=== PATIENT | female | born 1935 | race Caucasian/White ===

== ENCOUNTER 2017-06-06 22:03 | Inpatient (IN) | payer MEDICARE, OTHER ==
[~2017-06-06] VITALS: Ht 162.6 cm; Wt 67.3 kg
[~2017-06-06 22:03] MED LIST: ATOR10TA9 PO; DIVA250T PO; DONE10TA30 PO; DULO30CA2 PO; ESOM40CA PO; GABA800T2 PO; LEVO100T PO; MELA1TAB7 PO; METF-366 PO; METF10002 PO; RISP2TAB35 PO
[2017-06-06] MEDS ORDERED: SODIUM CHLORIDE 0.9%, 500ML IVBOLUS ONE (22:30)
[2017-06-06] MEDS ORDERED: PLEASE ENTER HEIGHT AND WEIGHT MC SCH (22:30)
[2017-06-06] MEDS ORDERED: PLEASE ENTER ALLERGIES MC SCH ×2 (22:30)
[2017-06-06] MEDS ORDERED: ACET325T14 PO (22:47)
[2017-06-06] MEDS ORDERED: LORA1TAB PO (22:47)
[2017-06-06] MEDS ORDERED: TRAZ100T15 PO (22:47)
[2017-06-06] MEDS ORDERED: CHOL2000 PO (22:47)
[2017-06-06] MEDS ORDERED: ASPIRIN 325 MG TABLET ONE (22:51)
[2017-06-06] MEDS ORDERED: OMNIPAQUE 350 MG/ML, 100ML BOTTLE ONE (22:55)
[2017-06-06] MEDS ORDERED: ASPIRIN 325 MG TABLET PO ONE (23:30)
[2017-06-07] MEDS ORDERED: ONDANSETRON 2MG/ML, 2ML IVPush PRN (00:30)
[2017-06-07] MEDS ORDERED: BISACODYL 10 MG SUPP PR PRN (00:30)
[2017-06-07] MEDS ORDERED: morphine SULFATE 10 MG/ML, 1ML IVPush PRN (00:30)
[2017-06-07] MEDS ORDERED: ENALAPRILAT 1.25 MG/ML, 2ML IVPush PRN (00:30)
[2017-06-07 00:46] LABS: IS PT STATUS REG ER OR PRE ER? NO
[2017-06-07 00:51] VITALS: BP 150/81
[2017-06-07] MEDS: SODIUM CHLORIDE 0.9% 1,000 ML IV SCH (01:19)
[2017-06-07] MEDS: HEPARIN 5,000 UNITS/ML, 1ML SQ SCH ×3 (01:20→16:30)
[2017-06-07 02:00] VITALS: BP 150/81
[2017-06-07 05:11] VITALS: BP 164/80
[2017-06-07 05:49] LABS: IS PT STATUS REG ER OR PRE ER? NO
[2017-06-07 07:29] VITALS: BP 151/80
[2017-06-07] MEDS: ASPIRIN 325 MG TABLET PO SCH (09:59)
[2017-06-07] MEDS ORDERED: GADOBUTROL 10 MMOL/10 ML VIAL ONE (13:23)
[2017-06-07 15:34] VITALS: BP 132/83
[2017-06-07 16:42] LABS: IS PT STATUS REG ER OR PRE ER? NO
[2017-06-07 18:23] LABS: PATH.CAST-FLAG NOT PRESENT; SPERM-FLAG NOT PRESENT; SRC-FLAG NOT PRESENT; XTAL-FLAG NOT PRESENT; YLC-FLAG NOT PRESENT
[2017-06-07 20:00] VITALS: BP 160/80
[2017-06-07 21:16] LABS: IS PT STATUS REG ER OR PRE ER? NO
[2017-06-07] MEDS: INSULIN ASPART 100 UNITS/ML, PEN SQ-INSULIN SCH (21:51)
[2017-06-08 02:00] VITALS: BP 153/73
[2017-06-08] MEDS: SODIUM CHLORIDE 0.9% 1,000 ML IV SCH (04:26)
[2017-06-08] MEDS: HEPARIN 5,000 UNITS/ML, 1ML SQ SCH (04:26)
[2017-06-08 06:16] LABS: ASPARTATE AMINO TRANSFERASE 13 U/L (15-37); BLOOD UREA NITROGEN 7 mg/dL (7-18)
[2017-06-08 06:23] LABS: IS PT STATUS REG ER OR PRE ER? NO
[2017-06-08 06:47] VITALS: BP 145/81
[2017-06-08] MEDS: INSULIN ASPART 100 UNITS/ML, PEN SQ-INSULIN SCH ×2 (07:00→11:36)
[2017-06-08] MEDS: ASPIRIN 325 MG TABLET PO SCH (08:22)
[2017-06-08] MEDS ORDERED: MAGNESIUM SULFATE PMX 2GM/50ML 50 ML IV ONE (10:00)
[2017-06-08] MEDS ORDERED: MAGNESIUM OXIDE 400 MG TABLET PO SCH (10:00)
[2017-06-08] MEDS ORDERED: ENOXAPARIN 40 MG/0.4 ML SQ SCH (12:00)
[2017-06-08 12:17] VITALS: BP 152/74
[2017-06-08] MEDS ORDERED: CEFTRIAXONE PMX 1GM/50ML 50 ML IV SCH (13:00)
[2017-06-08] MEDS ORDERED: TRAZ50TA18 PO (15:09)
[2017-06-08] MEDS ORDERED: LORA0.5T PO (15:09)
[2017-06-08] MEDS ORDERED: DIPH25CA61 PO (15:09)
[2017-06-08] MEDS ORDERED: MAGN400O4 PO (15:09)
[2017-06-08] MEDS ORDERED: ERGO500017 PO (15:09)
[2017-06-08] MEDS ORDERED: LOPE2CAP PO (15:09)
[2017-06-08] MEDS ORDERED: ASPI325T4 PO (16:15)
[2017-06-08] MEDS ORDERED: CEFD300C37 PO (16:15)
[2017-06-08] MEDS ORDERED: LACT1CAP24 PO (16:15)
[2017-06-08] MEDS ORDERED: ATOR10TA9 PO (16:15)
[2017-06-08] MEDS ORDERED: ATORVASTATIN 10 MG TABLET PO SCH (21:00)
[2017-06-09] MEDS ORDERED: LEVOTHYROXINE 100 MCG TABLET PO SCH (06:00)
== END 2017-06-08 16:02 | disposition home or self-care (01) | DRG 65 ==
LOC: MERGE 22:03 → EDBD 22:03 → ED 23:30 → EDIP 23:34 → 4EST 06-07 00:17
PROVIDERS: ADMIT Internal Medicine; ATTEND Internal Medicine
PROC: 0T9B70Z Drainage of Bladder with Drainage Device, Via Natural or Artificial Opening (ICD-10-PCS; principal; 2017-06-07)
DX: I63.9 Cerebral infarction, unspecified (principal); G45.9 Transient cerebral ischemic attack, unspecified; J96.10 Chronic respiratory failure, unspecified whether with hypoxia or hypercapnia; N39.0 Urinary tract infection, site not specified; G46.0 Middle cerebral artery syndrome; F03.90 Unspecified dementia, unspecified severity, without behavioral disturbance, psychotic disturbance, mood disturbance, and anxiety; E03.9 Hypothyroidism, unspecified; J44.9 Chronic obstructive pulmonary disease, unspecified; F31.9 Bipolar disorder, unspecified; D63.8 Anemia in other chronic diseases classified elsewhere; R47.81 Slurred speech; E78.5 Hyperlipidemia, unspecified; E83.39 Other disorders of phosphorus metabolism; E83.42 Hypomagnesemia; R74.8 Abnormal levels of other serum enzymes; E11.9 Type 2 diabetes mellitus without complications; K21.9 Gastro-esophageal reflux disease without esophagitis; Z79.82 Long term (current) use of aspirin; Z99.81 Dependence on supplemental oxygen; Z79.899 Other long term (current) drug therapy
CPT/HCPCS: 0042T; 36415; 70450; 70496; 70498; 70544; 70549; 70551; 80047; 80053; 80061; 81001; 82962; 83036; 83735; 84100; 84439; 84443; 84484; 85025; 85610; 85730; 87077; 87086; 87186; 93005; 93306; A9585; J0696; J1644; J1650; J1815; Q9967; J3475; J7030; J7040

== ENCOUNTER 2017-06-25 11:45 | Inpatient (IN) | payer MEDICARE, OTHER ==
[~2017-06-25] VITALS: Ht 162.6 cm; Wt 68.6 kg
[~2017-06-25 11:45] MED LIST changes: +ACET325T14 PO; +ASPI325T4 PO; +CEFD300C37 PO; +CHOL2000 PO; +DIPH25CA61 PO; +ERGO500017 PO; +LACT1CAP24 PO; +LOPE2CAP PO; +LORA0.5T PO; +LORA1TAB PO; +MAGN400O4 PO; +TRAZ100T15 PO; +TRAZ50TA18 PO
[2017-06-25] MEDS ORDERED: SODIUM CHLORIDE 0.9% 1,000 ML IV ONE (11:49)
[2017-06-25] MEDS ORDERED: SODIUM CHLORIDE FLUSH 10ML SYR IVF ONE ×2 (12:00→18:30)
[2017-06-25 12:08] LABS: HEMATOCRIT 33.4 % (34.6-47.8); WHITE BLOOD COUNT 10.6 x10^3/uL (3.4-10)
[2017-06-25 12:21] LABS: ASPARTATE AMINO TRANSFERASE 9 U/L (15-37); BLOOD UREA NITROGEN 22 mg/dL (7-18)
[2017-06-25] MEDS ORDERED: ACETAMINOPHEN 650 MG SUPP ONE (18:25)
[2017-06-25] MEDS ORDERED: SODIUM CHLORIDE 0.9% 1,000ML IVBOLUS ONE (18:30)
[2017-06-25] MEDS ORDERED: PHARMACOKINETIC MONITORING MC PRN (18:30)
[2017-06-25] MEDS ORDERED: PHARMACOKINETIC CONSULTATION MC ONE (18:30)
[2017-06-25] MEDS ORDERED: PIPERACILLIN/TAZO/PMX 3.375GM 50 ML IVPB ONE (18:30)
[2017-06-25] MEDS ORDERED: VANCOMYCIN PER PHARMACY IV ONE (18:30)
[2017-06-25] MEDS ORDERED: VANCOMYCIN 1,200 MG in SODIUM CHLORIDE 0.9% 250 ML IV ONE (18:30)
[2017-06-25] MEDS ORDERED: ACETAMINOPHEN 650 MG SUPP PR ONE (18:30)
[2017-06-25] MEDS ORDERED: PIPERACILLIN/TAZO/PMX 3.375GM 50 ML ONE (19:02)
[2017-06-25] MEDS ORDERED: ACETAMINOPHEN 325 MG TABLET PO PRN (19:30)
[2017-06-25] MEDS ORDERED: GUAIFENESIN/DM 200-20MG, 10ML UDC PO PRN (19:30)
[2017-06-25] MEDS ORDERED: ONDANSETRON 2MG/ML, 2ML IVPush PRN (19:30)
[2017-06-25] MEDS ORDERED: LORazepam 0.5MG TABLET PO PRN (22:30)
[2017-06-25] MEDS ORDERED: LOPERAMIDE 2 MG CAPSULE PO PRN (22:30)
[2017-06-25] MEDS: SODIUM CHLORIDE 0.9% 1,000 ML IV SCH (23:03)
[2017-06-25] MEDS: CEFTRIAXONE PMX 1GM/50ML 50 ML IV SCH (23:15)
[2017-06-25] MEDS: INSULIN ASPART 100 UNITS/ML, PEN SQ-INSULIN SCH (23:16)
[2017-06-26] MEDS: AZITHROMYCIN 500 MG in SODIUM CHLORIDE 0.9% 250 ML IV SCH (00:25)
[2017-06-26 01:32] VITALS: BP 116/73
[2017-06-26 04:44] LABS: WHITE BLOOD COUNT 14.4 x10^3/uL (3.4-10)
[2017-06-26 04:52] LABS: BLOOD UREA NITROGEN 15 mg/dL (7-18)
[2017-06-26 04:55] LABS: ASPARTATE AMINO TRANSFERASE 10 U/L (15-37)
[2017-06-26] MEDS: LEVOTHYROXINE 100 MCG TABLET PO SCH (05:40)
[2017-06-26] MEDS: SODIUM CHLORIDE 0.9% 1,000 ML IV SCH ×3 (05:55→22:57)
[2017-06-26] MEDS: INSULIN ASPART 100 UNITS/ML, PEN SQ-INSULIN SCH ×4 (07:00→22:52)
[2017-06-26 07:59] VITALS: BP 121/73
[2017-06-26] MEDS: GABAPENTIN 400 MG CAPSULE PO SCH ×2 (09:00→22:51)
[2017-06-26] MEDS: ASPIRIN 325 MG TABLET PO SCH (09:00)
[2017-06-26] MEDS ORDERED: MAGNESIUM SULFATE PMX 2GM/50ML 50 ML IV ONE (09:00)
[2017-06-26] MEDS: DIVALPROEX 125 MG TABLET.DR PO SCH ×3 (09:00→22:51)
[2017-06-26] MEDS: DULOXETINE 30 MG CAPSULE.DR PO SCH (09:00)
[2017-06-26] MEDS: DIPHENHYDRAMINE 25 MG CAPSULE PO SCH ×2 (09:00→22:52)
[2017-06-26] MEDS: ENOXAPARIN 40 MG/0.4 ML SQ SCH (10:53)
[2017-06-26 14:36] VITALS: BP 132/78
[2017-06-26 20:29] VITALS: BP 144/80
[2017-06-26] MEDS: RISPERIDONE 1 MG TABLET PO SCH (22:51)
[2017-06-26] MEDS: TRAZODONE 50MG TABLET PO SCH (22:51)
[2017-06-26] MEDS: CEFTRIAXONE PMX 1GM/50ML 50 ML IV SCH (23:11)
[2017-06-27] MEDS: AZITHROMYCIN 500 MG in SODIUM CHLORIDE 0.9% 250 ML IV SCH ×2 (00:01→23:53)
[2017-06-27 02:09] VITALS: BP 117/71
[2017-06-27 05:07] LABS: BLOOD UREA NITROGEN 13 mg/dL (7-18)
[2017-06-27 05:11] LABS: HEMATOCRIT 30.3 % (34.6-47.8); HEMOGLOBIN 10.1 g/dL (11.7-16.4); WHITE BLOOD COUNT 18.1 x10^3/uL (3.4-10)
[2017-06-27] MEDS: LEVOTHYROXINE 100 MCG TABLET PO SCH (05:22)
[2017-06-27] MEDS: SODIUM CHLORIDE 0.9% 1,000 ML IV SCH ×2 (05:25→11:42)
[2017-06-27 06:56] VITALS: BP 128/73
[2017-06-27] MEDS: INSULIN ASPART 100 UNITS/ML, PEN SQ-INSULIN SCH ×4 (08:12→22:16)
[2017-06-27] MEDS: DIPHENHYDRAMINE 25 MG CAPSULE PO SCH ×2 (08:26→20:49)
[2017-06-27] MEDS: ASPIRIN 325 MG TABLET PO SCH (08:26)
[2017-06-27] MEDS: DIVALPROEX 125 MG TABLET.DR PO SCH ×3 (08:27→20:49)
[2017-06-27] MEDS: DULOXETINE 30 MG CAPSULE.DR PO SCH (08:27)
[2017-06-27] MEDS: ENOXAPARIN 40 MG/0.4 ML SQ SCH (08:27)
[2017-06-27] MEDS: metroNIDAZOLE 500 MG TABLET PO SCH ×3 (08:27→20:50)
[2017-06-27] MEDS: GABAPENTIN 400 MG CAPSULE PO SCH ×2 (08:27→20:48)
[2017-06-27] MEDS: LACTOBACILLUS CHEW TABLET PO SCH ×3 (12:39→20:49)
[2017-06-27 14:23] VITALS: BP 130/75
[2017-06-27 18:44] VITALS: BP 152/84
[2017-06-27] MEDS: TRAZODONE 50MG TABLET PO SCH (20:47)
[2017-06-27] MEDS: RISPERIDONE 1 MG TABLET PO SCH (20:50)
[2017-06-27] MEDS: CEFTRIAXONE PMX 1GM/50ML 50 ML IV SCH (23:04)
[2017-06-28] MEDS: SODIUM CHLORIDE 0.9% 1,000 ML IV SCH ×2 (01:11→07:40)
[2017-06-28 03:04] VITALS: BP 134/72
[2017-06-28] MEDS: LACTOBACILLUS CHEW TABLET PO SCH ×4 (05:40→22:17)
[2017-06-28] MEDS: LEVOTHYROXINE 100 MCG TABLET PO SCH (05:41)
[2017-06-28 06:26] LABS: HEMATOCRIT 31.3 % (34.6-47.8); HEMOGLOBIN 10.5 g/dL (11.7-16.4); WHITE BLOOD COUNT 18.3 x10^3/uL (3.4-10)
[2017-06-28 06:37] LABS: BLOOD UREA NITROGEN 10 mg/dL (7-18)
[2017-06-28 06:59] LABS: DIFF TOTAL CELLS COUNTED 100 CELL DIFF
[2017-06-28 07:03] LABS: VERIFY COUNTS? YES
[2017-06-28 08:56] VITALS: BP 128/76
[2017-06-28] MEDS: INSULIN ASPART 100 UNITS/ML, PEN SQ-INSULIN SCH ×4 (09:36→22:15)
[2017-06-28] MEDS: DIPHENHYDRAMINE 25 MG CAPSULE PO SCH ×2 (09:38→22:16)
[2017-06-28] MEDS: DIVALPROEX 125 MG TABLET.DR PO SCH ×3 (09:38→22:30)
[2017-06-28] MEDS: ASPIRIN 325 MG TABLET PO SCH (09:38)
[2017-06-28] MEDS: metroNIDAZOLE 500 MG TABLET PO SCH ×3 (09:39→22:16)
[2017-06-28] MEDS: ENOXAPARIN 40 MG/0.4 ML SQ SCH (09:39)
[2017-06-28] MEDS: GABAPENTIN 400 MG CAPSULE PO SCH ×2 (09:39→22:17)
[2017-06-28] MEDS: DULOXETINE 30 MG CAPSULE.DR PO SCH (09:40)
[2017-06-28] MEDS ORDERED: METOCLOPRAMIDE 5 MG/ML, 2ML IVPush ONE (11:00)
[2017-06-28] MEDS ORDERED: SODIUM CHLORIDE 0.9% 1,000 ML IV SCH ×3 (11:08→19:20)
[2017-06-28] MEDS ORDERED: OMNIPAQUE 350 MG/ML, 100ML BOTTLE ONE (11:32)
[2017-06-28] MEDS: PIPERACILLIN/TAZO/PMX 4.5GM 100 ML IV SCH ×2 (11:35→17:13)
[2017-06-28] MEDS ORDERED: PHARMACOKINETIC MONITORING MC PRN (12:00)
[2017-06-28] MEDS ORDERED: VANCOMYCIN PER PHARMACY MC PRN (12:00)
[2017-06-28] MEDS ORDERED: PHARMACOKINETIC CONSULTATION MC ONE (12:00)
[2017-06-28] MEDS: VANCOMYCIN 1,200 MG in SODIUM CHLORIDE 0.9% 250 ML IV SCH (12:27)
[2017-06-28 14:38] VITALS: BP 133/73
[2017-06-28] MEDS ORDERED: METRONIDAZOLE PMX 500MG/100ML 100 ML IV SCH (17:30)
[2017-06-28 20:21] VITALS: BP 139/79
[2017-06-28] MEDS ORDERED: SODIUM CHLORIDE 0.9%, 500ML IVBOLUS ONE (22:00)
[2017-06-28] MEDS: TRAZODONE 50MG TABLET PO SCH (22:16)
[2017-06-28] MEDS: RISPERIDONE 1 MG TABLET PO SCH (22:17)
[2017-06-29] MEDS: PIPERACILLIN/TAZO/PMX 4.5GM 100 ML IV SCH ×4 (00:10→18:41)
[2017-06-29 02:15] VITALS: BP 119/59
[2017-06-29 05:16] LABS: HEMATOCRIT 31.7 % (34.6-47.8); HEMOGLOBIN 10.6 g/dL (11.7-16.4); WHITE BLOOD COUNT 20.6 x10^3/uL (3.4-10)
[2017-06-29] MEDS: LACTOBACILLUS CHEW TABLET PO SCH ×4 (05:41→21:53)
[2017-06-29] MEDS: LEVOTHYROXINE 100 MCG TABLET PO SCH (05:41)
[2017-06-29 05:56] LABS: BLOOD UREA NITROGEN 13 mg/dL (7-18)
[2017-06-29] MEDS: INSULIN ASPART 100 UNITS/ML, PEN SQ-INSULIN SCH ×4 (07:00→22:19)
[2017-06-29 08:05] VITALS: BP 103/57
[2017-06-29] MEDS: metroNIDAZOLE 500 MG TABLET PO SCH (11:19)
[2017-06-29] MEDS: DULOXETINE 30 MG CAPSULE.DR PO SCH (11:19)
[2017-06-29] MEDS: DIVALPROEX 125 MG TABLET.DR PO SCH ×3 (11:19→21:52)
[2017-06-29] MEDS: GABAPENTIN 400 MG CAPSULE PO SCH ×2 (11:19→21:52)
[2017-06-29] MEDS: ASPIRIN 325 MG TABLET PO SCH (11:19)
[2017-06-29] MEDS: ENOXAPARIN 40 MG/0.4 ML SQ SCH (11:20)
[2017-06-29] MEDS ORDERED: POTASSIUM PHOSPHATE 44 MEQ in SODIUM CHLORIDE 0.9% 500 ML IV ONE (12:00)
[2017-06-29] MEDS: DIPHENHYDRAMINE 25 MG CAPSULE PO SCH ×2 (12:03→21:53)
[2017-06-29] MEDS ORDERED: SODIUM CHLORIDE 0.9% 1,000 ML IV SCH (12:13)
[2017-06-29] MEDS: VANCOMYCIN 1,200 MG in SODIUM CHLORIDE 0.9% 250 ML IV SCH (13:47)
[2017-06-29 15:15] VITALS: BP 115/67
[2017-06-29] MEDS: VANCOMYCIN 50 MG/ML ORAL SUSP PO SCH ×2 (16:12→21:53)
[2017-06-29] MEDS: POTASSIUM CHLORIDE 20 MEQ TAB.ER.PRT PO SCH (17:52)
[2017-06-29 20:00] VITALS: BP 114/65
[2017-06-29] MEDS: TRAZODONE 50MG TABLET PO SCH (21:52)
[2017-06-29] MEDS: RISPERIDONE 1 MG TABLET PO SCH (21:52)
[2017-06-30] MEDS: PIPERACILLIN/TAZO/PMX 4.5GM 100 ML IV SCH ×4 (00:22→18:01)
[2017-06-30 01:36] VITALS: BP 117/63
[2017-06-30] MEDS: VANCOMYCIN 50 MG/ML ORAL SUSP PO SCH ×4 (02:08→19:52)
[2017-06-30 04:53] LABS: HEMATOCRIT 30.9 % (34.6-47.8); HEMOGLOBIN 10.1 g/dL (11.7-16.4); WHITE BLOOD COUNT 14.6 x10^3/uL (3.4-10)
[2017-06-30 05:08] LABS: BLOOD UREA NITROGEN 16 mg/dL (7-18)
[2017-06-30] MEDS: LEVOTHYROXINE 100 MCG TABLET PO SCH (05:33)
[2017-06-30] MEDS: LACTOBACILLUS CHEW TABLET PO SCH ×4 (06:20→19:57)
[2017-06-30 07:32] VITALS: BP 112/70
[2017-06-30] MEDS: INSULIN ASPART 100 UNITS/ML, PEN SQ-INSULIN SCH ×4 (07:33→20:23)
[2017-06-30] MEDS: DIVALPROEX 125 MG TABLET.DR PO SCH ×3 (08:18→19:56)
[2017-06-30] MEDS: POTASSIUM CHLORIDE 20 MEQ TAB.ER.PRT PO SCH (08:19)
[2017-06-30] MEDS: GABAPENTIN 400 MG CAPSULE PO SCH ×2 (08:19→19:57)
[2017-06-30] MEDS: ASPIRIN 325 MG TABLET PO SCH (08:19)
[2017-06-30] MEDS: ENOXAPARIN 40 MG/0.4 ML SQ SCH (08:19)
[2017-06-30] MEDS: DULOXETINE 30 MG CAPSULE.DR PO SCH (08:20)
[2017-06-30] MEDS: DIPHENHYDRAMINE 25 MG CAPSULE PO SCH ×2 (11:20→19:56)
[2017-06-30] MEDS: VANCOMYCIN 1,200 MG in SODIUM CHLORIDE 0.9% 250 ML IV SCH (13:24)
[2017-06-30 14:52] VITALS: BP 111/61
[2017-06-30] MEDS ORDERED: ACETAMINOPHEN 325 MG TABLET PO PRN (15:30)
[2017-06-30] MEDS ORDERED: PHARMACOKINETIC MONITORING MC PRN (15:30)
[2017-06-30] MEDS: RISPERIDONE 1 MG TABLET PO SCH (19:56)
[2017-06-30] MEDS: TRAZODONE 50MG TABLET PO SCH (19:57)
[2017-06-30 20:26] VITALS: BP 147/79
[2017-07-01] MEDS: PIPERACILLIN/TAZO/PMX 4.5GM 100 ML IV SCH ×4 (00:04→18:13)
[2017-07-01] MEDS: VANCOMYCIN 50 MG/ML ORAL SUSP PO SCH ×4 (01:56→20:06)
[2017-07-01 03:47] VITALS: BP 115/73
[2017-07-01] MEDS ORDERED: SODIUM CHLORIDE INHALATION 7%, 4 ML NPPB ONE (04:00)
[2017-07-01 04:54] LABS: HEMATOCRIT 31.8 % (34.6-47.8); HEMOGLOBIN 10.4 g/dL (11.7-16.4); WHITE BLOOD COUNT 9.1 x10^3/uL (3.4-10)
[2017-07-01 05:11] LABS: BLOOD UREA NITROGEN 13 mg/dL (7-18)
[2017-07-01] MEDS: LEVOTHYROXINE 100 MCG TABLET PO SCH (05:48)
[2017-07-01] MEDS: LACTOBACILLUS CHEW TABLET PO SCH ×4 (05:48→20:52)
[2017-07-01 06:50] VITALS: BP 113/61
[2017-07-01] MEDS: INSULIN ASPART 100 UNITS/ML, PEN SQ-INSULIN SCH ×4 (08:33→20:51)
[2017-07-01] MEDS: ENOXAPARIN 40 MG/0.4 ML SQ SCH (08:34)
[2017-07-01] MEDS: DIPHENHYDRAMINE 25 MG CAPSULE PO SCH (08:34)
[2017-07-01] MEDS: DULOXETINE 30 MG CAPSULE.DR PO SCH (08:34)
[2017-07-01] MEDS: DIVALPROEX 125 MG TABLET.DR PO SCH ×3 (08:34→20:52)
[2017-07-01] MEDS: GABAPENTIN 400 MG CAPSULE PO SCH (08:34)
[2017-07-01] MEDS: ASPIRIN 325 MG TABLET PO SCH (08:34)
[2017-07-01 08:46] VITALS: BP 123/71
[2017-07-01] MEDS ORDERED: GABAPENTIN 300 MG CAPSULE PO PRN (12:30)
[2017-07-01 13:55] VITALS: BP 111/67
[2017-07-01 20:21] VITALS: BP 142/81
[2017-07-01] MEDS: TRAZODONE 50MG TABLET PO SCH (20:52)
[2017-07-01] MEDS: RISPERIDONE 1 MG TABLET PO SCH (20:52)
[2017-07-02 01:11] VITALS: BP 118/68
[2017-07-02] MEDS: PIPERACILLIN/TAZO/PMX 4.5GM 100 ML IV SCH ×4 (01:12→18:31)
[2017-07-02] MEDS: VANCOMYCIN 50 MG/ML ORAL SUSP PO SCH ×4 (01:46→20:43)
[2017-07-02 05:18] LABS: HEMATOCRIT 33.1 % (34.6-47.8); HEMOGLOBIN 10.7 g/dL (11.7-16.4); WHITE BLOOD COUNT 6.7 x10^3/uL (3.4-10)
[2017-07-02 05:26] LABS: BLOOD UREA NITROGEN 10 mg/dL (7-18)
[2017-07-02] MEDS: LACTOBACILLUS CHEW TABLET PO SCH ×4 (06:12→20:44)
[2017-07-02] MEDS: LEVOTHYROXINE 100 MCG TABLET PO SCH (06:12)
[2017-07-02] MEDS: INSULIN ASPART 100 UNITS/ML, PEN SQ-INSULIN SCH ×4 (07:00→20:44)
[2017-07-02] MEDS: ENOXAPARIN 40 MG/0.4 ML SQ SCH (08:14)
[2017-07-02] MEDS: DULOXETINE 30 MG CAPSULE.DR PO SCH (08:14)
[2017-07-02] MEDS: ASPIRIN 325 MG TABLET PO SCH (08:15)
[2017-07-02] MEDS: DIVALPROEX 125 MG TABLET.DR PO SCH ×3 (08:20→20:44)
[2017-07-02 09:20] VITALS: BP 153/81
[2017-07-02 14:30] VITALS: BP 141/89
[2017-07-02 19:59] VITALS: BP 154/88
[2017-07-02] MEDS: TRAZODONE 50MG TABLET PO SCH (20:43)
[2017-07-02] MEDS: RISPERIDONE 1 MG TABLET PO SCH (20:43)
[2017-07-03 00:08] VITALS: BP 145/80
[2017-07-03] MEDS: PIPERACILLIN/TAZO/PMX 4.5GM 100 ML IV SCH ×4 (00:08→18:33)
[2017-07-03] MEDS: VANCOMYCIN 50 MG/ML ORAL SUSP PO SCH ×4 (02:41→22:40)
[2017-07-03 05:32] LABS: HEMATOCRIT 34.5 % (34.6-47.8); HEMOGLOBIN 11.3 g/dL (11.7-16.4); WHITE BLOOD COUNT 6.3 x10^3/uL (3.4-10)
[2017-07-03 05:47] LABS: BLOOD UREA NITROGEN 8 mg/dL (7-18)
[2017-07-03] MEDS: LACTOBACILLUS CHEW TABLET PO SCH ×5 (06:08→20:42)
[2017-07-03] MEDS: LEVOTHYROXINE 100 MCG TABLET PO SCH (06:08)
[2017-07-03] MEDS: INSULIN ASPART 100 UNITS/ML, PEN SQ-INSULIN SCH ×4 (07:00→20:43)
[2017-07-03 07:47] VITALS: BP 137/75
[2017-07-03] MEDS: DULOXETINE 30 MG CAPSULE.DR PO SCH ×2 (09:00→11:46)
[2017-07-03] MEDS: ASPIRIN 325 MG TABLET PO SCH ×2 (09:00→11:46)
[2017-07-03] MEDS: DIVALPROEX 125 MG TABLET.DR PO SCH ×4 (09:00→20:43)
[2017-07-03] MEDS: ENOXAPARIN 40 MG/0.4 ML SQ SCH (11:47)
[2017-07-03] MEDS: POTASSIUM CHLORIDE 40 MEQ in SODIUM CHLORIDE 0.45% 1,000 ML IV SCH (13:00)
[2017-07-03 14:49] VITALS: BP 142/91
[2017-07-03 19:56] VITALS: BP 145/94
[2017-07-03] MEDS: RISPERIDONE 1 MG TABLET PO SCH (20:43)
[2017-07-03] MEDS: TRAZODONE 50MG TABLET PO SCH (20:43)
[2017-07-04 00:33] VITALS: BP 145/91
[2017-07-04] MEDS: POTASSIUM CHLORIDE 40 MEQ in SODIUM CHLORIDE 0.45% 1,000 ML IV SCH ×2 (00:47→12:57)
[2017-07-04] MEDS: PIPERACILLIN/TAZO/PMX 4.5GM 100 ML IV SCH ×4 (00:47→18:39)
[2017-07-04] MEDS: LEVOTHYROXINE 100 MCG TABLET PO SCH (05:27)
[2017-07-04 05:31] LABS: ASPARTATE AMINO TRANSFERASE 27 U/L (15-37); BLOOD UREA NITROGEN 7 mg/dL (7-18)
[2017-07-04] MEDS: LACTOBACILLUS CHEW TABLET PO SCH ×4 (06:00→20:02)
[2017-07-04] MEDS: VANCOMYCIN 50 MG/ML ORAL SUSP PO SCH ×3 (06:13→17:40)
[2017-07-04] MEDS ORDERED: MAGNESIUM SULFATE PMX 2GM/50ML 50 ML IV ONE (07:00)
[2017-07-04 07:13] VITALS: BP 142/93
[2017-07-04] MEDS: ASPIRIN 325 MG TABLET PO SCH (09:00)
[2017-07-04] MEDS: DULOXETINE 30 MG CAPSULE.DR PO SCH (09:00)
[2017-07-04] MEDS: DIVALPROEX 125 MG TABLET.DR PO SCH (09:00)
[2017-07-04] MEDS: INSULIN ASPART 100 UNITS/ML, PEN SQ-INSULIN SCH ×4 (10:05→20:47)
[2017-07-04] MEDS: ENOXAPARIN 40 MG/0.4 ML SQ SCH (10:05)
[2017-07-04] MEDS: DIVALPROEX 125 MG CAP.SPRINK PO SCH ×3 (12:56→20:02)
[2017-07-04 14:17] VITALS: BP 140/93
[2017-07-04 20:00] VITALS: BP 159/97
[2017-07-04] MEDS: TRAZODONE 50MG TABLET PO SCH (20:02)
[2017-07-04] MEDS: RISPERIDONE 1 MG TABLET PO SCH (20:03)
[2017-07-05 00:30] VITALS: BP 151/97
[2017-07-05] MEDS: PIPERACILLIN/TAZO/PMX 4.5GM 100 ML IV SCH ×2 (00:43→09:46)
[2017-07-05] MEDS: VANCOMYCIN 50 MG/ML ORAL SUSP PO SCH ×4 (00:43→17:39)
[2017-07-05] MEDS: POTASSIUM CHLORIDE 40 MEQ in SODIUM CHLORIDE 0.45% 1,000 ML IV SCH ×2 (00:43→09:46)
[2017-07-05] MEDS: LACTOBACILLUS CHEW TABLET PO SCH ×4 (05:59→22:15)
[2017-07-05] MEDS: LEVOTHYROXINE 100 MCG TABLET PO SCH (05:59)
[2017-07-05] MEDS: INSULIN ASPART 100 UNITS/ML, PEN SQ-INSULIN SCH ×4 (07:00→21:00)
[2017-07-05 07:58] LABS: BLOOD UREA NITROGEN 4 mg/dL (7-18)
[2017-07-05 08:30] VITALS: BP 149/89
[2017-07-05] MEDS: DIVALPROEX 125 MG CAP.SPRINK PO SCH ×4 (09:00→22:15)
[2017-07-05] MEDS: DULOXETINE 30 MG CAPSULE.DR PO SCH (09:00)
[2017-07-05] MEDS: ASPIRIN 325 MG TABLET PO SCH (09:00)
[2017-07-05] MEDS ORDERED: POTASSIUM PHOSPHATE 44 MEQ in SODIUM CHLORIDE 0.9% 500 ML IV ONE (09:30)
[2017-07-05] MEDS: ENOXAPARIN 40 MG/0.4 ML SQ SCH (09:46)
[2017-07-05] MEDS: METRONIDAZOLE PMX 500MG/100ML 100 ML IV SCH ×2 (12:29→22:06)
[2017-07-05 12:46] VITALS: BP 150/95
[2017-07-05 19:22] VITALS: BP 159/96
[2017-07-05] MEDS: TRAZODONE 50MG TABLET PO SCH (22:12)
[2017-07-05] MEDS: RISPERIDONE 1 MG TABLET PO SCH (22:15)
[2017-07-06] MEDS: VANCOMYCIN 50 MG/ML ORAL SUSP PO SCH ×4 (00:40→19:35)
[2017-07-06 00:45] VITALS: BP 130/87
[2017-07-06] MEDS: POTASSIUM CHLORIDE 40 MEQ in SODIUM CHLORIDE 0.45% 1,000 ML IV SCH ×2 (06:16→16:54)
[2017-07-06] MEDS: METRONIDAZOLE PMX 500MG/100ML 100 ML IV SCH ×3 (06:17→22:17)
[2017-07-06] MEDS: LEVOTHYROXINE 100 MCG TABLET PO SCH (06:33)
[2017-07-06] MEDS: LACTOBACILLUS CHEW TABLET PO SCH ×4 (06:33→20:45)
[2017-07-06] MEDS: INSULIN ASPART 100 UNITS/ML, PEN SQ-INSULIN SCH ×4 (08:16→20:45)
[2017-07-06] MEDS: DIVALPROEX 125 MG CAP.SPRINK PO SCH ×3 (08:16→20:46)
[2017-07-06] MEDS: DULOXETINE 30 MG CAPSULE.DR PO SCH (08:16)
[2017-07-06] MEDS: ASPIRIN 325 MG TABLET PO SCH (08:16)
[2017-07-06] MEDS: ENOXAPARIN 40 MG/0.4 ML SQ SCH (08:17)
[2017-07-06 13:03] VITALS: BP 153/95
[2017-07-06] MEDS ORDERED: ONDANSETRON 2MG/ML, 2ML IVPush PRN (16:00)
[2017-07-06] MEDS ORDERED: GUAIFENESIN/DM 200-20MG, 10ML UDC PO PRN (16:00)
[2017-07-06] MEDS ORDERED: ACETAMINOPHEN 325 MG TABLET PO PRN (16:00)
[2017-07-06 19:11] VITALS: BP 156/94
[2017-07-06] MEDS: RISPERIDONE 1 MG TABLET PO SCH (20:45)
[2017-07-06] MEDS: TRAZODONE 50MG TABLET PO SCH (20:46)
[2017-07-07] MEDS: VANCOMYCIN 50 MG/ML ORAL SUSP PO SCH ×4 (01:06→16:14)
[2017-07-07 01:53] VITALS: BP 155/89
[2017-07-07] MEDS: POTASSIUM CHLORIDE 40 MEQ in SODIUM CHLORIDE 0.45% 1,000 ML IV SCH ×2 (03:35→14:32)
[2017-07-07 05:08] LABS: HEMATOCRIT 37.8 % (34.6-47.8); HEMOGLOBIN 12.3 g/dL (11.7-16.4); WHITE BLOOD COUNT 9.1 x10^3/uL (3.4-10)
[2017-07-07 05:16] LABS: BLOOD UREA NITROGEN 3 mg/dL (7-18)
[2017-07-07] MEDS: LACTOBACILLUS CHEW TABLET PO SCH ×4 (06:06→21:36)
[2017-07-07] MEDS: METRONIDAZOLE PMX 500MG/100ML 100 ML IV SCH ×3 (06:06→23:02)
[2017-07-07] MEDS: LEVOTHYROXINE 100 MCG TABLET PO SCH (06:06)
[2017-07-07 08:03] VITALS: BP 149/97
[2017-07-07] MEDS: DIVALPROEX 125 MG CAP.SPRINK PO SCH ×3 (08:06→21:35)
[2017-07-07] MEDS: ENOXAPARIN 40 MG/0.4 ML SQ SCH (08:06)
[2017-07-07] MEDS: INSULIN ASPART 100 UNITS/ML, PEN SQ-INSULIN SCH ×4 (08:06→21:00)
[2017-07-07] MEDS: DULOXETINE 30 MG CAPSULE.DR PO SCH (08:06)
[2017-07-07] MEDS: ASPIRIN 325 MG TABLET PO SCH (08:06)
[2017-07-07 14:53] VITALS: BP 154/105
[2017-07-07 19:57] VITALS: BP 147/97
[2017-07-07] MEDS: RISPERIDONE 1 MG TABLET PO SCH (21:35)
[2017-07-07] MEDS: TRAZODONE 50MG TABLET PO SCH (21:35)
[2017-07-08] MEDS: VANCOMYCIN 50 MG/ML ORAL SUSP PO SCH ×4 (01:08→18:30)
[2017-07-08] MEDS: POTASSIUM CHLORIDE 40 MEQ in SODIUM CHLORIDE 0.45% 1,000 ML IV SCH ×2 (01:12→12:43)
[2017-07-08 01:38] VITALS: BP 138/76
[2017-07-08 05:18] LABS: HEMOGLOBIN 11.7 g/dL (11.7-16.4); WHITE BLOOD COUNT 7.4 x10^3/uL (3.4-10)
[2017-07-08 05:57] LABS: ASPARTATE AMINO TRANSFERASE 33 U/L (15-37); BLOOD UREA NITROGEN 2 mg/dL (7-18)
[2017-07-08] MEDS: METRONIDAZOLE PMX 500MG/100ML 100 ML IV SCH ×3 (06:28→21:38)
[2017-07-08] MEDS: LACTOBACILLUS CHEW TABLET PO SCH ×4 (06:29→21:38)
[2017-07-08] MEDS: LEVOTHYROXINE 100 MCG TABLET PO SCH (06:29)
[2017-07-08] MEDS: INSULIN ASPART 100 UNITS/ML, PEN SQ-INSULIN SCH ×4 (07:00→21:00)
[2017-07-08 08:30] VITALS: BP 152/94
[2017-07-08] MEDS: DULOXETINE 30 MG CAPSULE.DR PO SCH (09:00)
[2017-07-08] MEDS: DIVALPROEX 125 MG CAP.SPRINK PO SCH ×4 (09:00→21:38)
[2017-07-08] MEDS: ASPIRIN 325 MG TABLET PO SCH (10:38)
[2017-07-08] MEDS: ENOXAPARIN 40 MG/0.4 ML SQ SCH (12:43)
[2017-07-08 15:51] VITALS: BP 153/96
[2017-07-08 19:56] VITALS: BP 147/92
[2017-07-08] MEDS: TRAZODONE 50MG TABLET PO SCH (21:38)
[2017-07-08] MEDS: RISPERIDONE 1 MG TABLET PO SCH (21:38)
[2017-07-09] MEDS: POTASSIUM CHLORIDE 40 MEQ in SODIUM CHLORIDE 0.45% 1,000 ML IV SCH ×2 (00:35→13:17)
[2017-07-09] MEDS: VANCOMYCIN 50 MG/ML ORAL SUSP PO SCH ×4 (00:35→19:54)
[2017-07-09 01:59] VITALS: BP 131/86
[2017-07-09] MEDS: LACTOBACILLUS CHEW TABLET PO SCH ×5 (06:10→21:28)
[2017-07-09] MEDS: LEVOTHYROXINE 100 MCG TABLET PO SCH (06:10)
[2017-07-09] MEDS: METRONIDAZOLE PMX 500MG/100ML 100 ML IV SCH ×3 (06:11→22:29)
[2017-07-09] MEDS: INSULIN ASPART 100 UNITS/ML, PEN SQ-INSULIN SCH ×4 (07:00→20:59)
[2017-07-09 07:56] VITALS: BP 159/100
[2017-07-09] MEDS: DIVALPROEX 125 MG CAP.SPRINK PO SCH ×4 (09:00→21:27)
[2017-07-09] MEDS: DULOXETINE 30 MG CAPSULE.DR PO SCH ×2 (09:00→11:18)
[2017-07-09] MEDS: ASPIRIN 325 MG TABLET PO SCH ×2 (09:00→11:18)
[2017-07-09] MEDS: ENOXAPARIN 40 MG/0.4 ML SQ SCH (11:18)
[2017-07-09 14:15] VITALS: BP 128/84
[2017-07-09 19:52] VITALS: BP 120/78
[2017-07-09] MEDS: TRAZODONE 50MG TABLET PO SCH (21:27)
[2017-07-09] MEDS: RISPERIDONE 1 MG TABLET PO SCH (21:28)
[2017-07-10 01:18] VITALS: BP 118/72
[2017-07-10] MEDS: VANCOMYCIN 50 MG/ML ORAL SUSP PO SCH ×4 (02:26→20:45)
[2017-07-10] MEDS: METRONIDAZOLE PMX 500MG/100ML 100 ML IV SCH ×3 (05:33→22:16)
[2017-07-10] MEDS: LACTOBACILLUS CHEW TABLET PO SCH ×4 (05:33→22:15)
[2017-07-10] MEDS: LEVOTHYROXINE 100 MCG TABLET PO SCH (05:33)
[2017-07-10] MEDS: INSULIN ASPART 100 UNITS/ML, PEN SQ-INSULIN SCH ×4 (07:00→20:48)
[2017-07-10 07:59] VITALS: BP 130/86
[2017-07-10] MEDS: ENOXAPARIN 40 MG/0.4 ML SQ SCH (08:24)
[2017-07-10] MEDS: DIVALPROEX 125 MG CAP.SPRINK PO SCH ×3 (08:24→22:14)
[2017-07-10] MEDS: DULOXETINE 30 MG CAPSULE.DR PO SCH (08:40)
[2017-07-10] MEDS: ASPIRIN 325 MG TABLET PO SCH (08:40)
[2017-07-10 12:11] VITALS: BP 141/83
[2017-07-10 19:39] VITALS: BP 157/94
[2017-07-10] MEDS: RISPERIDONE 1 MG TABLET PO SCH (22:15)
[2017-07-10] MEDS: TRAZODONE 50MG TABLET PO SCH (22:15)
[2017-07-11 00:48] VITALS: BP 148/90
[2017-07-11] MEDS: VANCOMYCIN 50 MG/ML ORAL SUSP PO SCH ×4 (02:00→20:19)
[2017-07-11 06:02] LABS: BLOOD UREA NITROGEN 3 mg/dL (7-18)
[2017-07-11] MEDS: METRONIDAZOLE PMX 500MG/100ML 100 ML IV SCH ×3 (06:10→22:18)
[2017-07-11] MEDS: LEVOTHYROXINE 100 MCG TABLET PO SCH (06:18)
[2017-07-11] MEDS: LACTOBACILLUS CHEW TABLET PO SCH ×4 (06:18→21:00)
[2017-07-11 06:54] VITALS: BP 142/86
[2017-07-11] MEDS: INSULIN ASPART 100 UNITS/ML, PEN SQ-INSULIN SCH ×4 (07:00→21:00)
[2017-07-11] MEDS ORDERED: MAGNESIUM SULFATE PMX 4GM/100M 100 ML IV ONE (09:00)
[2017-07-11] MEDS: ENOXAPARIN 40 MG/0.4 ML SQ SCH (09:09)
[2017-07-11] MEDS: DIVALPROEX 125 MG CAP.SPRINK PO SCH ×3 (09:09→20:19)
[2017-07-11] MEDS: DULOXETINE 30 MG CAPSULE.DR PO SCH (09:09)
[2017-07-11] MEDS: ASPIRIN 325 MG TABLET PO SCH (09:09)
[2017-07-11 13:59] VITALS: BP 152/92
[2017-07-11 18:33] VITALS: BP 150/95
[2017-07-11] MEDS: RISPERIDONE 1 MG TABLET PO SCH (20:20)
[2017-07-11] MEDS: TRAZODONE 50MG TABLET PO SCH (20:20)
[2017-07-12 00:43] VITALS: BP 156/84
[2017-07-12] MEDS: VANCOMYCIN 50 MG/ML ORAL SUSP PO SCH ×2 (02:09→09:51)
[2017-07-12] MEDS: LEVOTHYROXINE 100 MCG TABLET PO SCH (05:54)
[2017-07-12] MEDS: LACTOBACILLUS CHEW TABLET PO SCH ×2 (05:54→11:24)
[2017-07-12] MEDS: METRONIDAZOLE PMX 500MG/100ML 100 ML IV SCH (05:54)
[2017-07-12] MEDS: INSULIN ASPART 100 UNITS/ML, PEN SQ-INSULIN SCH ×2 (07:16→11:28)
[2017-07-12 07:18] VITALS: BP 149/90
[2017-07-12] MEDS: ASPIRIN 325 MG TABLET PO SCH (11:24)
[2017-07-12] MEDS: DULOXETINE 30 MG CAPSULE.DR PO SCH (11:24)
[2017-07-12] MEDS: DIVALPROEX 125 MG CAP.SPRINK PO SCH (11:24)
[2017-07-12] MEDS: ENOXAPARIN 40 MG/0.4 ML SQ SCH (11:25)
[2017-07-12] MEDS ORDERED: VANC1VIA3 PO (12:30)
[2017-07-12] MEDS ORDERED: ACID1TAB7 PO (12:30)
== END 2017-07-12 13:26 | DRG 871 ==
LOC: ED 14:14 → SUATTDRO 19:16 → EDIP 19:20 → 3NE 21:32
PROVIDERS: ADMIT Internal Medicine; ATTEND Internal Medicine
PROC: 0T9B70Z Drainage of Bladder with Drainage Device, Via Natural or Artificial Opening (ICD-10-PCS; principal; 2017-06-25)
PROC: 0T9B70Z Drainage of Bladder with Drainage Device, Via Natural or Artificial Opening (ICD-10-PCS; 2017-06-28)
DX: A41.4 Sepsis due to anaerobes (principal); E43 Unspecified severe protein-calorie malnutrition; G93.41 Metabolic encephalopathy; J69.0 Pneumonitis due to inhalation of food and vomit; A04.7 Enterocolitis due to Clostridium difficile; J98.11 Atelectasis; E03.9 Hypothyroidism, unspecified; E11.40 Type 2 diabetes mellitus with diabetic neuropathy, unspecified; E83.39 Other disorders of phosphorus metabolism; E83.42 Hypomagnesemia; E86.0 Dehydration; E86.1 Hypovolemia; E87.6 Hypokalemia; F02.80 Dementia in other diseases classified elsewhere, unspecified severity, without behavioral disturbance, psychotic disturbance, mood disturbance, and anxiety; G30.9 Alzheimer's disease, unspecified; F31.9 Bipolar disorder, unspecified; J44.9 Chronic obstructive pulmonary disease, unspecified; K21.9 Gastro-esophageal reflux disease without esophagitis; R59.0 Localized enlarged lymph nodes; M41.9 Scoliosis, unspecified; Y95 Nosocomial condition; Z66 Do not resuscitate; Z90.49 Acquired absence of other specified parts of digestive tract; Z90.710 Acquired absence of both cervix and uterus; Z98.1 Arthrodesis status; Z99.81 Dependence on supplemental oxygen; Z68.26 Body mass index [BMI] 26.0-26.9, adult
CPT/HCPCS: 36415; 71010; 71250; 74000; 74177; 74230; 80048; 80053; 81001; 81003; 82040; 82378; 82962; 83036; 83605; 83690; 83735; 83880; 84100; 84132; 84145; 84443; 85025; 85651; 86140; 87040; 87046; 87070; 87086; 87205; 87324; 87899; 88112; 93005; 96361; 96365; 96367; J0456; J0696; J1650; J1815; J2543; J3370; J3480; Q9967; J2765; J3475; J7030; J7040; J7050; Q0163

== ENCOUNTER 2018-11-12 02:07 | Emergency (ER) | payer MEDICARE, OTHER ==
[~2018-11-12] VITALS: Ht 162.6 cm; Wt 65.0 kg
[~2018-11-12 02:07] MED LIST changes: +ACID1TAB7 PO; +ASPI325T17 PO; -ASPI325T4 PO; -DONE10TA30 PO; +DONE10TA56 PO; -MAGN400O4 PO; +MAGN400O7 PO; +TRAZ-137 PO; -TRAZ100T15 PO; -TRAZ50TA18 PO; +TRAZ50TA66 PO; +VANC1VIA3 PO
[2018-11-12 02:35] LABS: BASOPHILS # (AUTO) 0.01 x10^3/uL (0-0.1); BASOPHILS % (AUTO) 0 % (0-1); EOSINOPHILS # (AUTO) 0.08 x10^3/uL (0-0.4); EOSINOPHILS % (AUTO) 1 % (1-7); LYMPHOCYTES # (AUTO) 1.19 x10^3/uL (1-3.4); LYMPHOCYTES % (AUTO) 19 % (22-44); MD NO; MEAN CORPUSCULAR HGB CONC 32.6 g/dL (32.4-35.8); MEAN PLATELET VOLUME 7.2 fL (7.4-10.4); MONOCYTES # (AUTO) 0.52 x10^3/uL (0.2-0.8); MONOCYTES % (AUTO) 8 % (2-9); NEUTROPHILS # (AUTO) 4.63 x10^3/uL (1.8-6.8); NEUTROPHILS % (AUTO) 72 % (42-75); PLATELET COUNT 212 x10^3/uL (130-400); RED BLOOD COUNT 2.97 x10^6/uL (3.82-5.3); RED CELL DISTRIBUTION WIDTH 16.9 % (9.6-15.2)
[2018-11-12] MEDS ORDERED: VANC50SO PO (02:40)
[2018-11-12] MEDS ORDERED: SACC250C4 PEG (02:40)
[2018-11-12] MEDS ORDERED: METO25TA35 PO (02:40)
[2018-11-12 02:42] LABS: ALBUMIN 2.9 g/dL (3.4-5.0); ANION GAP 5 mmol/L (5-15); CALCIUM 8.3 mg/dL (8.5-10.1); CHLORIDE 104 mmol/L (98-107)
[2018-11-12 02:50] LABS: INTERNATIONAL NORMALIZED RATIO 1.05 (0.93-1.1); PROTHROMBIN TIME 11.1 Seconds (9.6-11.5)
[2018-11-12 12:21] VITALS: BP 100/74
== END 2018-11-12 12:24 | disposition home or self-care (01) ==
LOC: ED 03:06
DX: S42.294A Other nondisplaced fracture of upper end of right humerus, initial encounter for closed fracture (principal); R53.83 Other fatigue; J44.9 Chronic obstructive pulmonary disease, unspecified; E11.9 Type 2 diabetes mellitus without complications; E03.9 Hypothyroidism, unspecified; K21.9 Gastro-esophageal reflux disease without esophagitis; F31.9 Bipolar disorder, unspecified; R51 Headache; Z86.73 Personal history of transient ischemic attack (TIA), and cerebral infarction without residual deficits; W06.XXXA Fall from bed, initial encounter; Y93.89 Activity, other specified; Y92.89 Other specified places as the place of occurrence of the external cause; Y99.8 Other external cause status
CPT/HCPCS: 29105; 36415; 70450; 71045; 72125; 80048; 82040; 85025; 85610; 99284

== ENCOUNTER 2020-11-17 08:38 | Observation (INO) | payer MEDICARE, OTHER ==
[~2020-11-17] VITALS: Ht 157.5 cm; Wt 41.4 kg
[~2020-11-17 08:38] MED LIST changes: -GABA800T2 PO; +GABA800T5 PO; +METO25TA35 PO; +SACC250C4 PEG; -TRAZ-137 PO; +TRAZ-175 PO; +VANC50SO PO
[2020-11-17] MEDS ORDERED: SODIUM CHLORIDE 0.9% 1,000ML IVBOLUS ONE (09:00)
[2020-11-17] MEDS ORDERED: CEFTRIAXONE PMX 1GM/50ML 50 ML IVPB ONE (09:00)
[2020-11-17] MEDS ORDERED: ACETAMINOPHEN 650 MG SUPP PR ONE (09:00)
[2020-11-17] MEDS ORDERED: CEFTRIAXONE PMX 1GM/50ML 50 ML ONE (09:07)
--- NOTE | 2020-11-17 09:37 | NUR ---
ON ARRIVAL, PT PLACED ON ALL ROOM MONITORING. EKG COMPLETED. PER [facility], PT IS DNR BUT NO PAPERWORK WITH PT. MIA BRENNAN CALLED DTR AND CONFIRMED DNR/DNI. ERP DR EDOUARD SPOKE WITH DTR AND WILL UPDATE CODE STATUS IN CHART. PT ARRIVES ON NRB AT 15 LITERS WITH PULSE OX AT 100%, RR 30S AND SHALLOW. PT HOT AT CORE BUT WITH COOL EXTREMITIES. NO EDEMA NOTICED. LS DIMINISHED, INSP WHEEZES AT BILATERAL BASES. IV BOLUS INFUSING. ROCEPHIN STARTED AFTER BC X 2 DRAWN BY HR ADMINISTRATIVE ASSISTANT. ST CATH UA PERFORMED, DROPS OF PALE CLOUDY THICK URINE OBTAINED-SPECIMEN WALKED TO LAB. ST ON MONITOR, 150S. PT AWAKE BUT NONVERBAL AT THIS TIME. [facility] 10. PATI.
[2020-11-17] MEDS ORDERED: CHOL10003 PO (09:58)
[2020-11-17 09:59] LABS: INTERNATIONAL NORMALIZED RATIO 1.22 (0.93-1.1); PROTHROMBIN TIME 12.9 Seconds (9.6-11.5)
[2020-11-17 10:01] LABS: ANION GAP 8 mmol/L (5-15); CALCIUM 9.9 mg/dL (8.5-10.1); CHLORIDE 121 mmol/L (98-107)
[2020-11-17 10:10] LABS: ALANINE AMINOTRANSFERASE 54 U/L (12-78); ALKALINE PHOSPHATASE 107 U/L (45-117); BILIRUBIN,TOTAL 0.5 mg/dL (0.2-1.0); CREATININE 1.79 mg/dL (0.55-1.02); TOTAL PROTEIN 8.8 g/dL (6.4-8.2)
--- NOTE | 2020-11-17 10:16 | NUR ---
ERP NOTIFIED OF PT STATUS. VS UPDATED IN COMPUTER.
[2020-11-17 10:28] LABS: BASOPHILS % (AUTO) 0 % (0-1); EOSINOPHILS % (AUTO) 0 % (1-7); LYMPHOCYTES % (AUTO) 4 % (22-44); MEAN CORPUSCULAR HEMOGLOBIN 30.6 pg (27.0-34.8); MEAN CORPUSCULAR HGB CONC 31.4 g/dL (32.4-35.8); MEAN PLATELET VOLUME 7.8 fL (7.4-10.4); MONOCYTES % (AUTO) 7 % (2-9); NEUTROPHILS % (AUTO) 89 % (42-75); PLATELET COUNT 298 x10^3/uL (130-400); RED BLOOD COUNT 3.26 x10^6/uL (3.82-5.3); RED CELL DISTRIBUTION WIDTH 14.2 % (9.6-15.2)
[2020-11-17] MEDS ORDERED: SODIUM CHLORIDE 0.9%, 500ML IVBOLUS ONE (10:30)
[2020-11-17] MEDS ORDERED: DEXAMETHASONE 4 MG/ML, 1ML IVPush ONE (10:30)
[2020-11-17 10:33] LABS: ALBUMIN 2.5 g/dL (3.4-5.0)
[2020-11-17 10:38] LABS: FREE T4 (FREE THYROXINE) 1.59 ng/dL (0.76-1.46)
[2020-11-17 10:51] LABS: MD SCAN
[2020-11-17] MEDS ORDERED: DOXYCYCLINE 100 MG in DEXTROSE 5% 250 ML IV SCH (11:00)
--- NOTE | 2020-11-17 11:03 | NUR ---
REPORT TO CINT[facility], TRANSFER OF CARE AT THIS TIME.
[2020-11-17] MEDS ORDERED: DEXAMETHASONE 4 MG/ML, 1ML ONE (11:15)
[2020-11-17 11:23] VITALS: BP 117/61
[2020-11-17] MEDS ORDERED: ACETAMINOPHEN 325 MG TABLET PO PRN (11:30)
[2020-11-17] MEDS ORDERED: SCOPOLAMINE 1MG PATCH TD SCH (11:30)
[2020-11-17] MEDS ORDERED: ONDANSETRON 2MG/ML, 2ML IVPush PRN (11:30)
[2020-11-17 12:03] LABS: MICROSCOPIC INDICATED
--- NOTE | 2020-11-17 12:22 | NUR ---
REPORT GIVEN TO RECIEVING RN, AWAITING TRANSPORT
[2020-11-17] MEDS ORDERED: FAMOTIDINE 20 MG/2 ML ONE (13:21)
[2020-11-17] MEDS: morphine SULFATE 10 MG/ML, 1ML IVPush PRN ×5 (14:32→20:58)
[2020-11-17] MEDS: LORazepam 2 MG/ML, 1ML IVPush PRN ×4 (16:07→22:58)
[2020-11-18] MEDS: morphine SULFATE 10 MG/ML, 1ML IVPush PRN ×3 (00:11→05:26)
[2020-11-18] MEDS: LORazepam 2 MG/ML, 1ML IVPush PRN ×2 (02:01→04:54)
== END 2020-11-18 07:00 | disposition expired ==
LOC: ED 08:48 → EDIP 10:53 → INTOOBSV 10:53 → SUATTDRO 11:07 → 3N 13:47
PROVIDERS: ADMIT Hospitalist; ATTEND Hospitalist
DX: U07.1 COVID-19 (principal); A41.89 Other specified sepsis; R65.20 Severe sepsis without septic shock; J44.0 Chronic obstructive pulmonary disease with (acute) lower respiratory infection; J12.89 Other viral pneumonia; J96.01 Acute respiratory failure with hypoxia; G93.41 Metabolic encephalopathy; R00.0 Tachycardia, unspecified; F03.90 Unspecified dementia, unspecified severity, without behavioral disturbance, psychotic disturbance, mood disturbance, and anxiety; E11.9 Type 2 diabetes mellitus without complications; K21.9 Gastro-esophageal reflux disease without esophagitis; E03.9 Hypothyroidism, unspecified; F31.9 Bipolar disorder, unspecified; Z87.891 Personal history of nicotine dependence; Z79.899 Other long term (current) drug therapy; Z86.73 Personal history of transient ischemic attack (TIA), and cerebral infarction without residual deficits; Z66 Do not resuscitate
CPT/HCPCS: 36415; 71045; 80053; 81001; 83605; 84145; 84439; 84443; 84481; 85025; 85610; 85730; 87040; 87086; 93005; 96365; 96367; 96375; 96376; 99285; G0378; J0696; J1100; J2060; J2270; J7030; J7040; J7060